=== PATIENT | female | born 1940 | race Caucasian/White ===

== ENCOUNTER 2017-11-30 19:06 | Inpatient (IN) | payer MEDICARE, BC, OTHER ==
[2017-11-30] VITALS (236 sets, daily range): O2SAT 60–100
[~2017-11-30] VITALS: Ht 152.4 cm; Wt 45.3 kg
[2017-11-30 20:30] LABS: INR 1.2 (0.8-3.0); PROTHROMBIN TIME 13.8 SECONDS (9.7-12.8)
[2017-11-30 20:32] LABS: PARTIAL THROMBOPLASTIN TIME 28.7 SECONDS (26.0-37.0)
[2017-11-30 20:37] LABS: ALBUMIN 2.6 gm/dL (3.5-5.0); BILIRUBIN,TOTAL 0.5 mg/dL (0.0-1.0); CALCIUM 9.2 mg/dL (8.4-10.2); CREATININE, serum 1.47 mg/dL (0.52-1.25); POTASSIUM 3.6 mmol/L (3.4-5.0); TOTAL PROTEIN 5.3 gm/dL (6.4-8.2)
[2017-12-01] VITALS (983 sets, daily range): BP systolic 109–147; BP diastolic 61–88; PULSE 97–106; TEMP 97.9–101.4; O2SAT 84–100
[2017-12-01 00:05] LABS: HEMATOCRIT 27.1 % (37.0-47.0)
[2017-12-01 00:13] LABS: BUDDING YEAST Present /hpf; MUCOUS Present /lpf; PH 6 (5-8); SQUAMOUS EPITHELIAL 0-2 /hpf; URINE APPEARANCE Cloudy; URINE BACTERIA Rare /hpf; URINE BILIRUBIN Negative (NEGATIVE); URINE BLOOD 3+ (NEGATIVE); URINE COLOR Yellow; URINE GLUCOSE Negative (NEGATIVE); URINE KETONE Negative (NEGATIVE); URINE LEUKOCYTE ESTERASE 3+ (NEGATIVE); URINE NITRATE Negative (NEGATIVE); URINE PROTEIN(semi-quant) 1+ (NEGATIVE); URINE RBC >50 /hpf; URINE UROBILINOGEN Negative (NEGATIVE)
[2017-12-01 00:14] LABS: COLLECTION METHOD CLEAN CATCH
[2017-12-01] MEDS ORDERED: FOLIC ACID 11 MG/TA1 PO (01:23)
[2017-12-01 04:12] LABS: HEMATOCRIT 26.5 % (37.0-47.0)
[2017-12-01 04:28] LABS: CALCIUM 8.9 mg/dL (8.4-10.2); CREATININE, serum 1.34 mg/dL (0.52-1.25); MAGNESIUM 1.9 mg/dL (1.6-2.3); PHOSPHOROUS 3.9 mg/dL (2.5-4.5); POTASSIUM 3.7 mmol/L (3.4-5.0)
[2017-12-01 08:17] LABS: HEMATOCRIT 26.5 % (37.0-47.0); HEMOGLOBIN 8.8 g/dl (12.5-16.0)
[2017-12-01 15:21] LABS: HEMATOCRIT 28.2 % (37.0-47.0); HEMOGLOBIN 9.4 g/dl (12.5-16.0)
[2017-12-02] VITALS (7 sets, daily range): BP systolic 147–160; BP diastolic 72–85; PULSE 95–108; TEMP 97.3–98.9
[2017-12-02 08:42] LABS: HEMATOCRIT 25.2 % (37.0-47.0); HEMOGLOBIN 8.4 g/dl (12.5-16.0); MEAN CELL VOLUME 89 fl (80.0-100.0); MEAN CORPUSCULAR HEMOGLOBIN 30 pg (27.0-31.0); MEAN CORPUSCULAR HGB CONC 33 g/dl (33.0-37.0); MEAN PLATELET VOLUME 9.7 fl (7.4-10.4); PLATELET COUNT 395 K/mm3 (130-400); RED BLOOD COUNT 2.83 M/mm3 (4.10-5.30); REDCELL DISTRIBUTION WIDTH-CV 15.4 % (11.5-14.5)
[2017-12-02 08:55] LABS: CALCIUM 8.5 mg/dL (8.4-10.2); CREATININE, serum 1.14 mg/dL (0.52-1.25); PHOSPHOROUS 3.2 mg/dL (2.5-4.5); POTASSIUM 3.8 mmol/L (3.4-5.0)
[2017-12-02 08:59] LABS: BAND 2 % (0-10); LYMPHOCYTE 16 % (20.0-51.0); NEUTROPHILS 70 % (42.0-75.2); POLYCHROMASIA 2+
[2017-12-02 09:00] LABS: TARGET CELLS 2+
[2017-12-02 09:02] LABS: PLATELET ESTIMATE NORMAL (NORMAL)
[2017-12-03 04:17] VITALS: BP 152/81; PULSE 95; TEMP 97.3
[2017-12-03 07:15] LABS: HEMATOCRIT 26.2 % (37.0-47.0); HEMOGLOBIN 8.6 g/dl (12.5-16.0); MEAN CELL VOLUME 90 fl (80.0-100.0); MEAN CORPUSCULAR HEMOGLOBIN 30 pg (27.0-31.0); MEAN CORPUSCULAR HGB CONC 33 g/dl (33.0-37.0); MEAN PLATELET VOLUME 9.9 fl (7.4-10.4); PLATELET COUNT 451 K/mm3 (130-400); RED BLOOD COUNT 2.91 M/mm3 (4.10-5.30); REDCELL DISTRIBUTION WIDTH-CV 15.4 % (11.5-14.5)
[2017-12-03 07:36] LABS: CALCIUM 7.9 mg/dL (8.4-10.2); CREATININE, serum 0.99 mg/dL (0.52-1.25); POTASSIUM 3.5 mmol/L (3.4-5.0)
[2017-12-03 08:04] VITALS: BP 171/96; PULSE 99; TEMP 97.4
[2017-12-03] MEDS ORDERED: ADVIL200 MG PO (09:56)
[2017-12-03] MEDS ORDERED: NEURONTIN100 MG/CAP PO (09:57)
[2017-12-03] MEDS ORDERED: ALDACTONE 25MG25 M1 (09:58)
[2017-12-03] MEDS ORDERED: MULTI VITAMINS1 TAB PO (09:59)
[2017-12-03] MEDS ORDERED: AVAPRO300 M1 PO (10:13)
[2017-12-03] MEDS ORDERED: LIPITOR20 MG PO (10:13)
[2017-12-03] MEDS ORDERED: MIRALAX PA17 GM/Dose PO (10:13)
[2017-12-03] MEDS ORDERED: BROVANA15 MCG/2 M IH (10:14)
[2017-12-03] MEDS ORDERED: NORVASC 5MG5 MG/TAB PO (10:14)
[2017-12-03] MEDS ORDERED: PULMICORT0.5 MG/2 M IH (10:15)
[2017-12-03] MEDS ORDERED: ULTRACET TABL1 UDTAB PO (10:15)
[2017-12-03 11:32] VITALS: BP 145/84; PULSE 105; TEMP 97.3
[2017-12-03 20:09] VITALS: BP 132/77; PULSE 111; TEMP 98.3
[2017-12-04 00:27] VITALS: BP 124/80; PULSE 114; TEMP 98.1
[2017-12-04 04:10] VITALS: BP 146/87; PULSE 108; TEMP 97.7
[2017-12-04 07:21] LABS: MEAN CELL VOLUME 89 fl (80.0-100.0); MEAN CORPUSCULAR HGB CONC 32 g/dl (33.0-37.0); MEAN PLATELET VOLUME 9.5 fl (7.4-10.4); RED BLOOD COUNT 3.28 M/mm3 (4.10-5.30)
[2017-12-04 07:22] LABS: CALCIUM 8.2 mg/dL (8.4-10.2); CREATININE, serum 0.94 mg/dL (0.52-1.25); POTASSIUM 3.5 mmol/L (3.4-5.0)
[2017-12-04 07:23] LABS: HEMATOCRIT 29.1 % (37.0-47.0); HEMOGLOBIN 9.4 g/dl (12.5-16.0); MEAN CORPUSCULAR HEMOGLOBIN 29 pg (27.0-31.0); PLATELET COUNT 559 K/mm3 (130-400)
[2017-12-04 09:01] VITALS: BP 143/93; PULSE 116; TEMP 97.6
[2017-12-04 09:41] LABS: BAND 27 % (0-10); LYMPHOCYTE 16 % (20.0-51.0); NEUTROPHILS 55 % (42.0-75.2); PLATELET ESTIMATE INCREASED (NORMAL)
[2017-12-04 13:14] VITALS: BP 103/70; PULSE 109; TEMP 98.7
[2017-12-04 16:54] VITALS: BP 112/82; PULSE 112; TEMP 98
[2017-12-04 20:34] VITALS: BP 149/68; PULSE 105; TEMP 98
[2017-12-05 02:22] VITALS: BP 135/85; PULSE 110; TEMP 98.4
[2017-12-05 04:49] LABS: BASO # 0.1 (0.0-0.2); BASO % 0.6 % (0.0-2.0); EOS # 0.1 (0.0-0.7); EOS % 0.8 % (0-4.0); GRAN % 75.7 % (42.2-75.2); LYMPH # 0.9 (1.2-3.4); LYMPH % 7.1 % (20.0-51.0); MEAN CELL VOLUME 89 fl (80.0-100.0); MEAN CORPUSCULAR HGB CONC 33 g/dl (33.0-37.0); MEAN PLATELET VOLUME 9.1 fl (7.4-10.4); MONO % 15.2 % (1.7-9.3); PLATELET COUNT 544 K/mm3 (130-400); RED BLOOD COUNT 3.07 M/mm3 (4.10-5.30); REDCELL DISTRIBUTION WIDTH-CV 15.1 % (11.5-14.5)
[2017-12-05 04:53] LABS: HEMATOCRIT 27.2 % (37.0-47.0); HEMOGLOBIN 8.9 g/dl (12.5-16.0); MEAN CORPUSCULAR HEMOGLOBIN 29 pg (27.0-31.0)
[2017-12-05 05:00] LABS: CALCIUM 7.7 mg/dL (8.4-10.2); CREATININE, serum 1.13 mg/dL (0.52-1.25); POTASSIUM 3.4 mmol/L (3.4-5.0)
[2017-12-05 05:31] LABS: VANCOMYCIN TROUGH 16.49 ug/mL (7.00-20.00)
[2017-12-05 08:47] VITALS: BP 139/80; PULSE 111; TEMP 98.4
[2017-12-05 12:51] VITALS: BP 122/77; PULSE 104; TEMP 97.9
[2017-12-05 16:02] VITALS: BP 911/60; PULSE 118; TEMP 97.8
[2017-12-05 19:55] VITALS: BP 107/73; PULSE 124; TEMP 98.5
[2017-12-05 23:17] VITALS: BP 127/68; PULSE 126; TEMP 99
[2017-12-06] VITALS (534 sets, daily range): BP systolic 86–136; BP diastolic 50–81; PULSE 100–131; TEMP 97.4–99.1; O2SAT 62–100
[2017-12-06 08:05] LABS: CALCIUM 7.1 mg/dL (8.4-10.2); CREATININE, serum 1.32 mg/dL (0.52-1.25); POTASSIUM 3.4 mmol/L (3.4-5.0)
[2017-12-06 08:38] LABS: BASO # 0.1 (0.0-0.2); BASO % 0.5 % (0.0-2.0); EOS # 0.1 (0.0-0.7); EOS % 0.7 % (0-4.0); GRAN # 8.1 (1.4-6.5); GRAN % 71.7 % (42.2-75.2); LYMPH # 1.4 (1.2-3.4); LYMPH % 12.6 % (20.0-51.0); MEAN CELL VOLUME 92 fl (80.0-100.0); MEAN CORPUSCULAR HGB CONC 32 g/dl (33.0-37.0); MEAN PLATELET VOLUME 9.4 fl (7.4-10.4); MONO # 1.5 (0.1-0.6); MONO % 13.4 % (1.7-9.3); PLATELET COUNT 509 K/mm3 (130-400); RED BLOOD COUNT 1.83 M/mm3 (4.10-5.30); REDCELL DISTRIBUTION WIDTH-CV 15.2 % (11.5-14.5)
[2017-12-06 08:41] LABS: HEMATOCRIT 16.8 % (37.0-47.0); HEMOGLOBIN 5.3 g/dl (12.5-16.0); MEAN CORPUSCULAR HEMOGLOBIN 29 pg (27.0-31.0)
[2017-12-06 09:48] LABS: TROPONIN-I 0.017 ng/mL (0.000-0.034)
[2017-12-06 10:11] LABS: HEMOGLOBIN 4.3 g/dl (12.5-16.0)
[2017-12-06 10:12] LABS: HEMATOCRIT 13.4 % (37.0-47.0)
[2017-12-06 15:17] LABS: HEMATOCRIT 30.4 % (37.0-47.0); HEMOGLOBIN 10.4 g/dl (12.5-16.0)
[2017-12-06 15:21] LABS: INR 1.4 (0.8-3.0); PROTHROMBIN TIME 16.8 SECONDS (9.7-12.8)
[2017-12-06 15:26] LABS: CALCIUM 6.4 mg/dL (8.4-10.2); CREATININE, serum 1.16 mg/dL (0.52-1.25); MAGNESIUM 1.7 mg/dL (1.6-2.3)
[2017-12-06 15:29] LABS: PARTIAL THROMBOPLASTIN TIME 28.8 SECONDS (26.0-37.0)
[2017-12-06 19:21] LABS: HEMATOCRIT 31.1 % (37.0-47.0); HEMOGLOBIN 10.6 g/dl (12.5-16.0)
[2017-12-06 23:37] LABS: HEMATOCRIT 27.5 % (37.0-47.0); HEMOGLOBIN 9.3 g/dl (12.5-16.0)
[2017-12-07] VITALS (1129 sets, daily range): BP systolic 121–153; BP diastolic 72–97; PULSE 107–123; TEMP 97.1–98.4; O2SAT 67–100
[2017-12-07 03:17] LABS: BASO # 0.1 (0.0-0.2); EOS # 0.1 (0.0-0.7); EOS % 0.7 % (0-4.0); GRAN # 6.7 (1.4-6.5); GRAN % 66.6 % (42.2-75.2); LYMPH # 1.5 (1.2-3.4); LYMPH % 14.6 % (20.0-51.0); MEAN CORPUSCULAR HGB CONC 34 g/dl (33.0-37.0); MEAN PLATELET VOLUME 9.5 fl (7.4-10.4); MONO # 1.5 (0.1-0.6); MONO % 14.6 % (1.7-9.3); RED BLOOD COUNT 3.19 M/mm3 (4.10-5.30)
[2017-12-07 03:20] LABS: HEMATOCRIT 27.1 % (37.0-47.0); HEMOGLOBIN 9.1 g/dl (12.5-16.0); MEAN CELL VOLUME 85 fl (80.0-100.0); MEAN CORPUSCULAR HEMOGLOBIN 29 pg (27.0-31.0); PLATELET COUNT 305 K/mm3 (130-400)
[2017-12-07 03:26] LABS: CREATININE, serum 1.11 mg/dL (0.52-1.25)
[2017-12-07 03:33] LABS: POTASSIUM 6.4 mmol/L (3.4-5.0)
[2017-12-07 07:08] LABS: HEMATOCRIT 29.9 % (37.0-47.0); HEMOGLOBIN 10.1 g/dl (12.5-16.0)
[2017-12-07 12:33] LABS: HEMATOCRIT 29.7 % (37.0-47.0); HEMOGLOBIN 9.9 g/dl (12.5-16.0)
[2017-12-07 16:03] LABS: HEMATOCRIT 28.6 % (37.0-47.0); HEMOGLOBIN 9.5 g/dl (12.5-16.0)
[2017-12-08] VITALS (1416 sets, daily range): BP systolic 122–141; BP diastolic 69–89; PULSE 90–109; TEMP 97.1–98.5; O2SAT 77–100
[2017-12-08 00:20] LABS: HEMATOCRIT 27.3 % (37.0-47.0); HEMOGLOBIN 9.1 g/dl (12.5-16.0)
[2017-12-08 06:14] LABS: MEAN CELL VOLUME 87 fl (80.0-100.0); MEAN CORPUSCULAR HGB CONC 34 g/dl (33.0-37.0); MEAN PLATELET VOLUME 9.4 fl (7.4-10.4); PLATELET COUNT 317 K/mm3 (130-400); RED BLOOD COUNT 3.05 M/mm3 (4.10-5.30); REDCELL DISTRIBUTION WIDTH-CV 17.1 % (11.5-14.5)
[2017-12-08 06:15] LABS: HEMATOCRIT 26.4 % (37.0-47.0); HEMOGLOBIN 8.9 g/dl (12.5-16.0); MEAN CORPUSCULAR HEMOGLOBIN 29 pg (27.0-31.0)
[2017-12-08 06:16] LABS: INR 1.3 (0.8-3.0); PROTHROMBIN TIME 15.4 SECONDS (9.7-12.8)
[2017-12-08 06:25] LABS: ALBUMIN 2.1 gm/dL (3.5-5.0); BILIRUBIN,TOTAL 0.1 mg/dL (0.0-1.0); CALCIUM 6.2 mg/dL (8.4-10.2); CREATININE, serum 1.08 mg/dL (0.52-1.25); MAGNESIUM 1.5 mg/dL (1.6-2.3); POTASSIUM 3.6 mmol/L (3.4-5.0); TOTAL PROTEIN 4.6 gm/dL (6.4-8.2)
[2017-12-08 06:44] LABS: ANISOCYTOSIS 1+; BAND 2 % (0-10); LYMPHOCYTE 12 % (20.0-51.0); NEUTROPHILS 75 % (42.0-75.2); PLATELET ESTIMATE NORMAL (NORMAL)
[2017-12-08 13:14] LABS: HEMATOCRIT 29.9 % (37.0-47.0); HEMOGLOBIN 9.6 g/dl (12.5-16.0)
[2017-12-09] VITALS (696 sets, daily range): BP systolic 89–129; BP diastolic 60–82; PULSE 52–136; TEMP 96.8–98.3; O2SAT 71–100
[2017-12-09 06:04] LABS: BASO # 0.1 (0.0-0.2); BASO % 0.7 % (0.0-2.0); EOS # 0.2 (0.0-0.7); EOS % 1.9 % (0-4.0); GRAN # 6.3 (1.4-6.5); GRAN % 71.5 % (42.2-75.2); LYMPH # 1.2 (1.2-3.4); LYMPH % 13.7 % (20.0-51.0); MEAN CELL VOLUME 88 fl (80.0-100.0); MEAN CORPUSCULAR HGB CONC 33 g/dl (33.0-37.0); MEAN PLATELET VOLUME 9.4 fl (7.4-10.4); MONO % 11.3 % (1.7-9.3); PLATELET COUNT 305 K/mm3 (130-400); RED BLOOD COUNT 3.16 M/mm3 (4.10-5.30); REDCELL DISTRIBUTION WIDTH-CV 16.9 % (11.5-14.5)
[2017-12-09 06:08] LABS: HEMATOCRIT 27.9 % (37.0-47.0); HEMOGLOBIN 9.1 g/dl (12.5-16.0); MEAN CORPUSCULAR HEMOGLOBIN 29 pg (27.0-31.0)
[2017-12-09 06:15] LABS: CREATININE, serum 1.09 mg/dL (0.52-1.25); MAGNESIUM 1.9 mg/dL (1.6-2.3); POTASSIUM 3.7 mmol/L (3.4-5.0)
[2017-12-09 06:16] LABS: CALCIUM 5.9 mg/dL (8.4-10.2)
[2017-12-09 13:24] LABS: HEMATOCRIT 23.8 % (37.0-47.0); HEMOGLOBIN 7.6 g/dl (12.5-16.0)
[2017-12-09 21:01] LABS: HEMATOCRIT 21.5 % (37.0-47.0)
[2017-12-09 21:02] LABS: HEMOGLOBIN 6.9 g/dl (12.5-16.0)
[2017-12-09 21:36] LABS: HEMOGLOBIN 6.5 g/dl (12.5-16.0)
[2017-12-10] VITALS (1134 sets, daily range): BP systolic 77–139; BP diastolic 59–89; PULSE 107–129; TEMP 96.5–98.1; O2SAT 78–100
[2017-12-10 06:14] LABS: BASO # 0.1 (0.0-0.2); BASO % 0.5 % (0.0-2.0); EOS # 0.1 (0.0-0.7); EOS % 0.7 % (0-4.0); GRAN # 10.1 (1.4-6.5); GRAN % 75.8 % (42.2-75.2); LYMPH # 1.4 (1.2-3.4); LYMPH % 10.7 % (20.0-51.0); MEAN CELL VOLUME 90 fl (80.0-100.0); MEAN CORPUSCULAR HGB CONC 34 g/dl (33.0-37.0); MEAN PLATELET VOLUME 9.6 fl (7.4-10.4); MONO # 1.5 (0.1-0.6); MONO % 11.2 % (1.7-9.3); PLATELET COUNT 212 K/mm3 (130-400); RED BLOOD COUNT 2.55 M/mm3 (4.10-5.30); REDCELL DISTRIBUTION WIDTH-CV 15.2 % (11.5-14.5)
[2017-12-10 06:17] LABS: HEMATOCRIT 22.9 % (37.0-47.0); HEMOGLOBIN 7.7 g/dl (12.5-16.0); MEAN CORPUSCULAR HEMOGLOBIN 30 pg (27.0-31.0)
[2017-12-10 06:25] LABS: CALCIUM 6.2 mg/dL (8.4-10.2); CREATININE, serum 1.15 mg/dL (0.52-1.25); POTASSIUM 4.6 mmol/L (3.4-5.0)
[2017-12-10 09:48] LABS: INR 1.3 (0.8-3.0); PROTHROMBIN TIME 14.6 SECONDS (9.7-12.8)
[2017-12-10 14:02] LABS: HEMATOCRIT 20.8 % (37.0-47.0); HEMOGLOBIN 6.9 g/dl (12.5-16.0)
[2017-12-10 18:27] LABS: HEMATOCRIT 26.2 % (37.0-47.0); HEMOGLOBIN 8.7 g/dl (12.5-16.0)
[2017-12-10 21:51] LABS: HEMATOCRIT 27.4 % (37.0-47.0); HEMOGLOBIN 9.1 g/dl (12.5-16.0)
[2017-12-11] VITALS (1157 sets, daily range): BP systolic 102–119; BP diastolic 58–89; PULSE 111–123; TEMP 96.9–98.1; O2SAT 74–100
[2017-12-11 02:25] LABS: HEMATOCRIT 27.5 % (37.0-47.0); HEMOGLOBIN 8.8 g/dl (12.5-16.0)
[2017-12-11 05:36] LABS: MEAN CELL VOLUME 90 fl (80.0-100.0); MEAN CORPUSCULAR HGB CONC 32 g/dl (33.0-37.0); MEAN PLATELET VOLUME 9.9 fl (7.4-10.4); PLATELET COUNT 146 K/mm3 (130-400); RED BLOOD COUNT 2.92 M/mm3 (4.10-5.30); REDCELL DISTRIBUTION WIDTH-CV 17.7 % (11.5-14.5)
[2017-12-11 05:42] LABS: HEMATOCRIT 26.2 % (37.0-47.0); HEMOGLOBIN 8.4 g/dl (12.5-16.0); MEAN CORPUSCULAR HEMOGLOBIN 29 pg (27.0-31.0)
[2017-12-11 05:49] LABS: CREATININE, serum 1.16 mg/dL (0.52-1.25); POTASSIUM 4.3 mmol/L (3.4-5.0)
[2017-12-11 05:50] LABS: CALCIUM 5.1 mg/dL (8.4-10.2)
[2017-12-11 06:01] LABS: BASOPHIL 1 % (0-2); LYMPHOCYTE 8 % (20.0-51.0); MYELOCYTE 1 % (0-0); NEUTROPHILS 87 % (42.0-75.2)
[2017-12-11 06:02] LABS: PLATELET ESTIMATE DECREASED (NORMAL); TOXIC GRANULATION PRESENT
[2017-12-11 06:03] LABS: POLYCHROMASIA 1+
[2017-12-11 06:05] LABS: ANISOCYTOSIS 1+
[2017-12-11 06:06] LABS: BURR CELLS 1+
[2017-12-11 06:11] LABS: ALANINE AMINOTRANSFERASE 33 U/L (9-52); ALBUMIN 1.4 gm/dL (3.5-5.0); ALKALINE PHOSPHATASE 36 U/L (50-136); AST,SGOT 37 U/L (15-37); BILIRUBIN,TOTAL < 0.1 mg/dL (0.0-1.0); MAGNESIUM 1.6 mg/dL (1.6-2.3); PHOSPHOROUS 4.4 mg/dL (2.5-4.5); TOTAL PROTEIN 3.3 gm/dL (6.4-8.2)
[2017-12-11 09:59] LABS: HEMATOCRIT 26.7 % (37.0-47.0); HEMOGLOBIN 8.7 g/dl (12.5-16.0)
[2017-12-11 18:41] LABS: HEMATOCRIT 25.4 % (37.0-47.0); HEMOGLOBIN 8.2 g/dl (12.5-16.0)
[2017-12-12] VITALS (951 sets, daily range): BP systolic 101–131; BP diastolic 52–97; PULSE 80–122; TEMP 97–98.7; O2SAT 78–100
[2017-12-12 02:07] LABS: MEAN CELL VOLUME 91 fl (80.0-100.0); MEAN CORPUSCULAR HGB CONC 32 g/dl (33.0-37.0); MEAN PLATELET VOLUME 9.8 fl (7.4-10.4); PLATELET COUNT 168 K/mm3 (130-400); RED BLOOD COUNT 2.89 M/mm3 (4.10-5.30); REDCELL DISTRIBUTION WIDTH-CV 18.7 % (11.5-14.5)
[2017-12-12 02:12] LABS: INR 1.1 (0.8-3.0); PROTHROMBIN TIME 12.2 SECONDS (9.7-12.8)
[2017-12-12 02:15] LABS: HEMATOCRIT 26.3 % (37.0-47.0); HEMOGLOBIN 8.3 g/dl (12.5-16.0); MEAN CORPUSCULAR HEMOGLOBIN 29 pg (27.0-31.0); PARTIAL THROMBOPLASTIN TIME 28.3 SECONDS (26.0-37.0)
[2017-12-12 02:20] LABS: CALCIUM 6.2 mg/dL (8.4-10.2); CREATININE, serum 1.45 mg/dL (0.52-1.25); POTASSIUM 3.9 mmol/L (3.4-5.0)
[2017-12-12 02:26] LABS: ANISOCYTOSIS 2+; BAND 2 % (0-10); LYMPHOCYTE 7 % (20.0-51.0); METAMYELOCYTE 2 % (0-0); MICROCYTOSIS 2+; NEUTROPHILS 80 % (42.0-75.2)
[2017-12-12 02:27] LABS: BURR CELLS 1+; POLYCHROMASIA 1+; TARGET CELLS 1+
[2017-12-12 02:57] LABS: COLLECTION METHOD CATHETER
[2017-12-12 03:19] LABS: BUDDING YEAST Present /hpf; MUCOUS Present /lpf; PH 5 (5-8); SQUAMOUS EPITHELIAL None Seen /hpf; URINE APPEARANCE Hazy; URINE BACTERIA Rare /hpf; URINE BILIRUBIN Negative (NEGATIVE); URINE BLOOD 2+ (NEGATIVE); URINE COLOR Straw; URINE GLUCOSE Negative (NEGATIVE); URINE KETONE Negative (NEGATIVE); URINE LEUKOCYTE ESTERASE Trace (NEGATIVE); URINE NITRATE Negative (NEGATIVE); URINE PROTEIN(semi-quant) 1+ (NEGATIVE); URINE RBC >50 /hpf; URINE UROBILINOGEN Negative (NEGATIVE)
[2017-12-12 10:52] LABS: GLUCOSE,PLEURAL FLUID 136 mg/dL
[2017-12-12 10:53] LABS: TOTAL PROTEIN,PLEURAL FLUID < 2.0 gm/dL
[2017-12-12 11:25] LABS: PLEURAL FLUID RBC 6000 /mm3 (0-0); PLEURAL FLUID WBC 1124 /mm3
[2017-12-12 14:12] LABS: PLEURAL FLUID APPEARANCE CLEAR; PLEURAL FLUID COLOR YELLOW
[2017-12-12 14:27] LABS: PLEURAL FLUID APPEARANCE CLEAR; PLEURAL FLUID COLOR COLORLESS
[2017-12-12 14:29] LABS: PLEURAL FLUID RBC 2000 /mm3 (0-0); PLEURAL FLUID WBC 144 /mm3
[2017-12-12 14:37] LABS: GLUCOSE,PLEURAL FLUID 142 mg/dL
[2017-12-12 14:41] LABS: TOTAL PROTEIN,PLEURAL FLUID < 2.0 gm/dL
[2017-12-12 16:15] LABS: HEMOGLOBIN 7.9 g/dl (12.5-16.0)
[2017-12-13] VITALS (873 sets, daily range): BP systolic 105–130; BP diastolic 51–97; PULSE 108–124; TEMP 98.6–100.6; O2SAT 74–100
[2017-12-13 05:52] LABS: BASO % 0.2 % (0.0-2.0); GRAN # 12.4 (1.4-6.5); GRAN % 84.2 % (42.2-75.2); LYMPH # 0.8 (1.2-3.4); LYMPH % 5.7 % (20.0-51.0); MEAN CELL VOLUME 93 fl (80.0-100.0); MEAN CORPUSCULAR HGB CONC 32 g/dl (33.0-37.0); MEAN PLATELET VOLUME 9.9 fl (7.4-10.4); MONO # 1.3 (0.1-0.6); MONO % 8.8 % (1.7-9.3); PLATELET COUNT 166 K/mm3 (130-400); REDCELL DISTRIBUTION WIDTH-CV 19.4 % (11.5-14.5)
[2017-12-13 05:56] LABS: HEMATOCRIT 25.1 % (37.0-47.0); HEMOGLOBIN 7.9 g/dl (12.5-16.0); MEAN CORPUSCULAR HEMOGLOBIN 29 pg (27.0-31.0)
[2017-12-13 06:02] LABS: ALANINE AMINOTRANSFERASE 32 U/L (9-52); ALBUMIN 1.7 gm/dL (3.5-5.0); ALKALINE PHOSPHATASE 56 U/L (50-136); ANION GAP 5 mmol/L (7-16); AST,SGOT 18 U/L (15-37); BILIRUBIN,TOTAL < 0.1 mg/dL (0.0-1.0); BLOOD UREA NITROGEN 23 mg/dL (7-17); CALCIUM 6.6 mg/dL (8.4-10.2); CARBON DIOXIDE 19 mmol/L (22-30); CHLORIDE 130 mmol/L (98-107); CREATININE, serum 1.62 mg/dL (0.52-1.25); GLUCOSE 180 mg/dL (74-106); MAGNESIUM 2.4 mg/dL (1.6-2.3); POTASSIUM 3.8 mmol/L (3.4-5.0); SODIUM 153 mmol/L (137-145); TOTAL PROTEIN 3.9 gm/dL (6.4-8.2)
[2017-12-14] VITALS (770 sets, daily range): BP systolic 132–150; BP diastolic 74–91; PULSE 97–108; TEMP 97–98.5; O2SAT 72–100
[2017-12-14 05:24] LABS: BASO % 0.3 % (0.0-2.0); EOS # 0.1 (0.0-0.7); EOS % 0.6 % (0-4.0); GRAN # 8.4 (1.4-6.5); GRAN % 78.2 % (42.2-75.2); LYMPH # 0.8 (1.2-3.4); LYMPH % 7.7 % (20.0-51.0); MEAN CELL VOLUME 91 fl (80.0-100.0); MEAN CORPUSCULAR HGB CONC 31 g/dl (33.0-37.0); MEAN PLATELET VOLUME 10.4 fl (7.4-10.4); MONO # 1.3 (0.1-0.6); MONO % 12.5 % (1.7-9.3); PLATELET COUNT 177 K/mm3 (130-400); RED BLOOD COUNT 2.68 M/mm3 (4.10-5.30); REDCELL DISTRIBUTION WIDTH-CV 19.6 % (11.5-14.5)
[2017-12-14 05:27] LABS: HEMATOCRIT 24.5 % (37.0-47.0); HEMOGLOBIN 7.7 g/dl (12.5-16.0); MEAN CORPUSCULAR HEMOGLOBIN 29 pg (27.0-31.0)
[2017-12-14 05:35] LABS: ALANINE AMINOTRANSFERASE 29 U/L (9-52); ALBUMIN 1.7 gm/dL (3.5-5.0); ALKALINE PHOSPHATASE 63 U/L (50-136); ANION GAP 4 mmol/L (7-16); AST,SGOT 16 U/L (15-37); BILIRUBIN,TOTAL < 0.1 mg/dL (0.0-1.0); BLOOD UREA NITROGEN 21 mg/dL (7-17); CALCIUM 6.7 mg/dL (8.4-10.2); CARBON DIOXIDE 19 mmol/L (22-30); CHLORIDE 128 mmol/L (98-107); CREATININE, serum 1.57 mg/dL (0.52-1.25); GLUCOSE 131 mg/dL (74-106); MAGNESIUM 2.4 mg/dL (1.6-2.3); PHOSPHOROUS 2.5 mg/dL (2.5-4.5); POTASSIUM 3.6 mmol/L (3.4-5.0); SODIUM 152 mmol/L (137-145); TOTAL PROTEIN 3.9 gm/dL (6.4-8.2)
[2017-12-15 00:33] VITALS: BP 151/77; PULSE 88; TEMP 98.3
[2017-12-15 04:42] VITALS: BP 144/74; PULSE 94; TEMP 97.5
[2017-12-15 07:56] LABS: CALCIUM 6.4 mg/dL (8.4-10.2); CREATININE, serum 1.39 mg/dL (0.52-1.25); POTASSIUM 4.2 mmol/L (3.4-5.0)
[2017-12-15 08:00] VITALS: BP 137/73; PULSE 100; TEMP 97.5
[2017-12-15 11:52] LABS: BASO % 0.3 % (0.0-2.0); EOS # 0.2 (0.0-0.7); GRAN # 8.1 (1.4-6.5); GRAN % 75.5 % (42.2-75.2); LYMPH % 8.8 % (20.0-51.0); MEAN CELL VOLUME 93 fl (80.0-100.0); MEAN CORPUSCULAR HGB CONC 31 g/dl (33.0-37.0); MEAN PLATELET VOLUME 11.5 fl (7.4-10.4); MONO # 1.4 (0.1-0.6); MONO % 12.8 % (1.7-9.3); PLATELET COUNT 185 K/mm3 (130-400); RED BLOOD COUNT 2.71 M/mm3 (4.10-5.30); REDCELL DISTRIBUTION WIDTH-CV 19.3 % (11.5-14.5)
[2017-12-15 11:54] LABS: HEMATOCRIT 25.3 % (37.0-47.0); HEMOGLOBIN 7.8 g/dl (12.5-16.0); MEAN CORPUSCULAR HEMOGLOBIN 29 pg (27.0-31.0)
[2017-12-15 12:00] VITALS: BP 141/71; PULSE 99; TEMP 97.5
[2017-12-15 17:23] VITALS: BP 131/73; PULSE 108; TEMP 99
[2017-12-15 20:00] VITALS: BP 146/84; PULSE 122; TEMP 97.7
[2017-12-16 00:42] VITALS: BP 153/78; PULSE 123; TEMP 98
[2017-12-16 04:00] VITALS: BP 145/74; PULSE 101; TEMP 98.5
[2017-12-16 08:00] VITALS: BP 122/65; PULSE 107; TEMP 97.7
[2017-12-16 12:00] VITALS: BP 126/82; PULSE 110; TEMP 97.6
[2017-12-16 17:41] VITALS: BP 134/64; PULSE 114; TEMP 97.4
[2017-12-16 20:00] VITALS: BP 164/73; PULSE 113; TEMP 97.4
[2017-12-17] VITALS (7 sets, daily range): BP systolic 133–169; BP diastolic 70–94; PULSE 100–120; TEMP 97.8–98.7
[2017-12-17 06:51] LABS: MEAN CELL VOLUME 92 fl (80.0-100.0); MEAN CORPUSCULAR HGB CONC 31 g/dl (33.0-37.0); MEAN PLATELET VOLUME 11.8 fl (7.4-10.4); PLATELET COUNT 213 K/mm3 (130-400); RED BLOOD COUNT 2.64 M/mm3 (4.10-5.30)
[2017-12-17 06:53] LABS: HEMATOCRIT 24.3 % (37.0-47.0); HEMOGLOBIN 7.6 g/dl (12.5-16.0); MEAN CORPUSCULAR HEMOGLOBIN 29 pg (27.0-31.0)
[2017-12-17 07:04] LABS: ALANINE AMINOTRANSFERASE 35 U/L (9-52); ALBUMIN 1.9 gm/dL (3.5-5.0); ALKALINE PHOSPHATASE 114 U/L (50-136); ANION GAP 5 mmol/L (7-16); AST,SGOT 40 U/L (15-37); BILIRUBIN,TOTAL < 0.1 mg/dL (0.0-1.0); BLOOD UREA NITROGEN 25 mg/dL (7-17); CALCIUM 7.1 mg/dL (8.4-10.2); CARBON DIOXIDE 25 mmol/L (22-30); CHLORIDE 110 mmol/L (98-107); CREATININE, serum 1.28 mg/dL (0.52-1.25); GLUCOSE 123 mg/dL (74-106); PHOSPHOROUS 3.2 mg/dL (2.5-4.5); POTASSIUM 3.7 mmol/L (3.4-5.0); SODIUM 140 mmol/L (137-145); TOTAL PROTEIN 4.4 gm/dL (6.4-8.2)
[2017-12-17 07:24] LABS: BAND 4 % (0-10); EOSINOPHIL 1 % (0-4); LYMPHOCYTE 3 % (20.0-51.0); NEUTROPHILS 88 % (42.0-75.2); PLATELET ESTIMATE NORMAL (NORMAL); POLYCHROMASIA 2+
[2017-12-17 07:25] LABS: ANISOCYTOSIS 2+; HYPOCHROMIA 2+
[2017-12-18 00:09] VITALS: BP 152/72; PULSE 104; TEMP 97.7
[2017-12-18 04:12] VITALS: BP 147/76; PULSE 100; TEMP 98.2
[2017-12-18] MEDS ORDERED: TOPROL XL 25MG25 MG PO (09:27)
[2017-12-18] MEDS ORDERED: TYLENOL 500MG500 MG PO (09:28)
[2017-12-18] MEDS ORDERED: IPRATROPIUM BROM3 M1 IH (09:30)
[2017-12-18] MEDS ORDERED: PROTONIX 40MG T40 MG PO (09:31)
[2017-12-18 09:47] VITALS: BP 152/83; PULSE 121; TEMP 98.4
[2017-12-18 12:22] VITALS: BP 152/83; PULSE 121; TEMP 98.4
[2017-12-18 16:26] VITALS: BP 154/79; PULSE 107; TEMP 97.8
[2017-12-19 12:47] LABS: ALK PHOS ISOENZYME XXX; ALK PHOS ISOENZYME - TOTAL XXX
== END 2017-12-18 16:30 | disposition swing bed (61) | DRG 356 ==
LOC: IMCU 19:06 → ICU 19:33 → MEDICAL 19:33 → ICU 12-06 09:10 → SURG 12-09 11:13 → ICU 12-09 23:06 → SURG 12-14 18:00
PROVIDERS: Family Medicine; Internal Medicine; Internal Medicine Pulmonary Disease; Nurse Anesthetist, Certified Registered; Nurse Practitioner Family; Physician Assistant; Surgery
PROC: 0DJ08ZZ Inspection of Upper Intestinal Tract, Via Natural or Artificial Opening Endoscopic (ICD-10-PCS; 2017-11-30)
PROC: 0W3P8ZZ Control Bleeding in Gastrointestinal Tract, Via Natural or Artificial Opening Endoscopic (ICD-10-PCS; 2017-12-06)
PROC: 0DH63UZ Insertion of Feeding Device into Stomach, Percutaneous Approach (ICD-10-PCS; 2017-12-10)
PROC: 04L20ZZ Occlusion of Gastric Artery, Open Approach (ICD-10-PCS; principal; 2017-12-10 10:00)
PROC: 0W9B3ZX Drainage of Left Pleural Cavity, Percutaneous Approach, Diagnostic (ICD-10-PCS; 2017-12-12)
PROC: 0W993ZX Drainage of Right Pleural Cavity, Percutaneous Approach, Diagnostic (ICD-10-PCS; 2017-12-12)
DX: K26.0 Acute duodenal ulcer with hemorrhage (principal); E43 Unspecified severe protein-calorie malnutrition; J18.9 Pneumonia, unspecified organism; D62 Acute posthemorrhagic anemia; E87.2 Acidosis; N17.9 Acute kidney failure, unspecified; Z68.1 Body mass index [BMI] 19.9 or less, adult; R65.10 Systemic inflammatory response syndrome (SIRS) of non-infectious origin without acute organ dysfunction; J90 Pleural effusion, not elsewhere classified; E87.0 Hyperosmolality and hypernatremia; J98.11 Atelectasis; B37.49 Other urogenital candidiasis; T39.315A Adverse effect of propionic acid derivatives, initial encounter; J44.9 Chronic obstructive pulmonary disease, unspecified; I10 Essential (primary) hypertension; F17.210 Nicotine dependence, cigarettes, uncomplicated; E83.51 Hypocalcemia; R73.9 Hyperglycemia, unspecified; E87.6 Hypokalemia; E83.42 Hypomagnesemia
CPT/HCPCS: 99223-AI; 99232-AI; 99233-AI; 99239; A9284; A9560; C1751; C9113; J0610; J0690; J0696; J1100; J1170; J1450; J1644; J1815; J1956; J2250; J2405; J2543; J2704; J2795; J2916; J3010; J3370; J3430; J3475; J3480; J7030; J7040; J7050; J7060; J7120; P9016; Q9967